=== PATIENT | female | born 1995 | race Caucasian/White ===

== ENCOUNTER → 2021-05-01 11:48 | Outpatient (BNVA) | payer OTHER, SELFPAY | PROVIDERS: PCP Internal Medicine; Visit Provider Obstetrics & Gynecology ==

== ENCOUNTER 2021-07-20 12:05 | Outpatient (REF) | payer OTHER, SELFPAY ==
[2021-07-21 02:47] LABS: CT PCR NOT DETECTED (Not Detect.); NG PCR NOT DETECTED (Not Detect.)
[2021-07-23 14:33] LABS: BV Int Neg Control Negative (Negative); BV Int Pos Control Positive (Positive)
== END 2021-07-20 12:06 | disposition home or self-care (01) ==
LOC: HO.LAB 12:05
PROVIDERS: PCP Internal Medicine; Visit Provider Obstetrics & Gynecology
DX: N76.0 Acute vaginitis (principal); Z11.3 Encounter for screening for infections with a predominantly sexual mode of transmission
CPT/HCPCS: 87480; 87491; 87510; 87591; 87660; 99212

== ENCOUNTER 2021-07-28 13:49 | Outpatient (REF) | payer OTHER, SELFPAY ==
[2021-07-28 15:01] LABS: Syphilis Screen Nonreactive (Nonreactive)
[2021-07-31 04:27] LABS: HIV AB/AG Nonreactive (Nonreactive); HIV Num 1 0.09 S/CO (0.00-0.99); ~HepC Num1 0.06 S/CO (0.00-0.79); ~Hepatitis C Antibody Nonreactive (Nonreactive)
[2021-07-31 04:37] LABS: HBsAGNum1 0.35 S/CO (0.00-0.99); Hepatitis B Surface Antigen Negative (Negative)
== END 2021-07-28 13:50 | disposition home or self-care (01) ==
LOC: HO.LAB 13:49
PROVIDERS: Visit Provider Obstetrics & Gynecology
DX: Z11.3 Encounter for screening for infections with a predominantly sexual mode of transmission (principal)
CPT/HCPCS: 36415; 86780; 86803; 87340; 87389

== ENCOUNTER 2021-10-19 13:52 | Outpatient (REF) | payer OTHER, SELFPAY ==
[2021-10-20 08:24] LABS: HIV AB/AG Nonreactive (Nonreactive); HIV Num 1 0.04 S/CO (0.00-0.99)
[2021-10-20 08:51] LABS: BV Int Neg Control Negative (Negative); BV Int Pos Control Positive (Positive)
[2021-10-20 11:07] LABS: CT PCR NOT DETECTED (Not Detect.); NG PCR NOT DETECTED (Not Detect.)
== END 2021-10-19 13:53 | disposition home or self-care (01) ==
LOC: HO.LAB 13:52
PROVIDERS: Visit Provider Obstetrics & Gynecology
DX: Z01.419 Encounter for gynecological examination (general) (routine) without abnormal findings (principal); N76.0 Acute vaginitis; B96.89 Other specified bacterial agents as the cause of diseases classified elsewhere
CPT/HCPCS: 36415; 87389; 87480; 87491; 87510; 87591; 87660; 99212

== ENCOUNTER 2021-12-13 10:00 | Outpatient (REF) | payer OTHER, SELFPAY ==
[2021-12-13 10:20] LABS: MANUAL DIFF FLAG NO
[2021-12-13 10:31] LABS: Basophils Percent Auto 0.4 % (0-2); Eosinophils Absolute Auto 0.2 X10*3/uL (0.0-0.4); Hematocrit 37.5 % (37.0-47.0); Hemoglobin 12.5 g/dl (12.0-16.0); Imm Gran Abs Auto 0.03 X10*3/uL (0.00-0.03); Imm Gran Pct Auto 0.4 % (0.0-0.4); Lymphocytes Absolute Auto 2.6 X10*3/uL (1.2-4.9); Lymphocytes Percent Auto 37.1 % (20-40); Mean Corpuscular HGB Conc 33.3 g/dl (31.0-35.0); Mean Corpuscular Hemoglobin 29.6 pg (27.0-33.0); Mean Corpuscular Volume 88.7 fL (80.0-98.0); Mean Platelet Volume 10.3 fL (9.4-12.3); Monocytes Absolute Auto 0.6 X10*3/uL (0.1-1.2); Monocytes Percent Auto 8.9 % (2-11); Neutrophils Absolute Auto 3.5 x10*3/uL (2.0-8.3); Neutrophils Percent Auto 50.2 % (45-73); Platelet Count 284 X10*3/uL (160-400); Red Blood Count 4.23 X10*6/uL (4.20-5.50); Red Cell Distribution Width 12.8 % (11.0-16.0)
[2021-12-13 11:38] LABS: Syphilis Screen Nonreactive (Nonreactive)
[2021-12-13 11:41] LABS: TSH reflex Free T4 1.01 uIU/mL (0.32-4.0); ~HepC Num1 0.07 S/CO (0.00-0.79); ~Hepatitis C Antibody Nonreactive (Nonreactive)
[2021-12-13 11:44] LABS: Alanine Aminotransferase 22 U/L (0-31); Albumin Level 4.2 g/dL (3.5-5.0); Alkaline Phosphatase 62 U/L (39-117); Anion Gap 10 (12-20); Aspartate Amino Transferase 19 U/L (5-31); Bilirubin Total 0.5 mg/dL (0.0-1.0); Blood Urea Nitrogen 15 mg/dL (9-16); Calcium 9.2 mg/dL (8.4-10.2); Carbon Dioxide 28 mmol/L (22-29); Chloride 106 mmol/L (96-108); Cholesterol 174 mg/dL; Estimated Glomerular Filt Rate > 60; Glucose Fasting 89 mg/dL (60-99); HDL Cholesterol 47 mg/dL; LDL Cholesterol Calculated 112 mg/dl; Potassium 4.4 mmol/L (3.3-5.1); Sodium 140 mmol/L (135-145); Triglycerides 77 mg/dL
[2021-12-13 12:26] LABS: Hepatitis B Surface Antigen Negative (Negative)
== END 2021-12-13 10:01 | disposition home or self-care (01) ==
LOC: HO.LAB 10:00
PROVIDERS: Obstetrics & Gynecology; PCP Nurse Practitioner Family; Visit Provider Nurse Practitioner Family
DX: Z13.29 Encounter for screening for other suspected endocrine disorder (principal); Z11.3 Encounter for screening for infections with a predominantly sexual mode of transmission; B96.89 Other specified bacterial agents as the cause of diseases classified elsewhere; N76.0 Acute vaginitis; Z76.89 Persons encountering health services in other specified circumstances
CPT/HCPCS: 36415; 80053; 80061; 84443; 85025; 86780; 86803; 87340

== ENCOUNTER 2022-04-05 07:49 | Outpatient (REF) | payer OTHER, SELFPAY ==
--- NOTE | 2022-04-05 07:53 | EMG_ITS ---
left median and ulnar motor and sensory studies were performed, left radial sensory study was performed, and paraspinal muscles were tested with a needle. IMPRESSION: Mild left ulnar nerve slowing across elbow. Median study was within normal range and otherwise no significant abnormality was noted. MD KUSUM Vaca/DYLONL / [id number]
== END 2022-04-05 07:50 | disposition home or self-care (01) ==
LOC: HO.NEURO 07:49
PROVIDERS: Visit Provider Nurse Practitioner Family
DX: R20.0 Anesthesia of skin (principal)
CPT/HCPCS: 95886; 95909

== ENCOUNTER 2022-06-25 15:06 | Outpatient (REF) | payer OTHER, SELFPAY ==
[2022-06-26 12:37] LABS: Influenza A PCR NEGATIVE (Negative); Influenza B PCR NEGATIVE (Negative); Resp Syncy Virus RNA Qual PCR NEGATIVE (Negative); SARS COV2 PCR INHOUSE POSITIVE (Negative)
== END 2022-06-25 15:07 | disposition home or self-care (01) ==
LOC: HO.LNP 15:06
PROVIDERS: Visit Provider Hospitalist
DX: Z20.822 Contact with and (suspected) exposure to COVID-19 (principal); B34.9 Viral infection, unspecified
CPT/HCPCS: 0241U

== ENCOUNTER 2022-06-25 16:24 | Outpatient (REF) | payer OTHER, SELFPAY | END 2022-06-25 16:25 | disposition home or self-care (01) | LOC: HO.LAB 16:24 | PROVIDERS: Visit Provider Hospitalist | DX: Z13.89 Encounter for screening for other disorder (principal) ==

== ENCOUNTER → 2022-11-16 09:32 | Outpatient (BNVA) | payer OTHER, SELFPAY | PROVIDERS: PCP Nurse Practitioner Family; Visit Provider Internal Medicine | DX: S00.83XA Contusion of other part of head, initial encounter (principal); W50.0XXA Accidental hit or strike by another person, initial encounter; H53.8 Other visual disturbances | CPT/HCPCS: 99202 ==

== ENCOUNTER → 2022-11-19 11:16 | Outpatient (BNVA) | payer OTHER, SELFPAY | PROVIDERS: PCP Nurse Practitioner Family; Visit Provider Internal Medicine | DX: H54.62 Unqualified visual loss, left eye, normal vision right eye (principal) | CPT/HCPCS: 99213 ==

== ENCOUNTER 2023-05-22 09:59 | Outpatient (AMB) | payer OTHER, SELFPAY ==
[2023-05-22 10:04] VITALS: BP 114/80; BMI 34.6
--- NOTE | 2023-05-22 10:04 | A.OFFVIS_ITS ---
Intake Vital Signs 05/22/23 10:04 Height 5 ft 1 in Weight 183 lb BMI 34.6 BP 114/80 Intake Visit Reasons: STD check Intake Note: has been having nausea cramping and has only been spotting since march, she states she felt like something was coming out she thinks she might have a prolapse, Also would like std checking. Animal Care Supervisor Required: No Information Interpreted: non-clinical & clinical Command And Control Systems Integrator: Command And Control Systems Integrator Present (Aidyn) Allergies acetaminophen [From PERCOCET] Allergy (Intermediate, Verified 05/22/23 10:08) SHORTNESS OF BREATH oxycodone [From PERCOCET] Allergy (Intermediate, Verified 05/22/23 10:08) SHORTNESS OF BREATH ondansetron [From ZOFRAN ( HYDROCHLORIDE)] Allergy (Unknown, Verified 05/22/23 10:08) UNKNOWN oxycodone Allergy (Unknown, Uncoded 05/22/23 10:08) hives percocet Allergy (Unknown, Uncoded 05/22/23 10:08) shortness of breath tylenol Allergy (Unknown, Uncoded 05/22/23 10:08) hives zofran Allergy (Unknown, Uncoded 05/22/23 10:08) hives Is last menstrual period known: Yes Last menstrual period: 04/02/23 Post menopausal: No HPI STD check HPI Details Patient is here for visit for an STD check. She said she had an annual exam scheduled in March but it got rescheduled and she did not want a wait till June when it has been rescheduled for an STD check she is not particularly worried she just likes to get them done regularly she is not having any abnormal discharge from what she tells me and she has never had an abnormal Pap but she did not want await for the STD check part of. She also says that a little while ago she was peeing and she felt something that a was coming out of her and she took a picture of it and looked it up and it said that she could be having a prolapse. She denies straining for having bowel movements or voiding and says she did not push for either of her deliveries very much at all her 1st baby was delivered vaginally and her 2nd baby had trisomy 13 and a heart defect and was delivered at 36 weeks at [facility] and she says they were trying to keep her for a while and then they induced her and then they did is . So she did not push for that delivery either. She denies any other urinary problems or any other issues with constipation or straining. She also had not had a period since April 09 or soap though she does not exactly keep track of the dates and she wanted a test and she is not trying to prevent and she is not trying to get if it happens it happens and she would be okay with it her 1st child was born in 2017 the child with trisomy 13 lived for 9 days. [facility] Surgical History Hx of section Family History Mother Asthma Father Diabetes Social History Housing: House Alcohol intake: never Patient Tobacco Use Status: Never used Tobacco e-Cigarette/Vaping Use: Never Used Second Hand Smoke Exposure: No service: No Current occupational status: unemployed Cognitive needs: No Hearing needs: No Vision needs: No Female Reproductive History Menstrual Age of Menarche: 10 Duration of menses: 6-7 days Date of last menstrual period: 04/02/23 control method: none Total pregnancies: 2 Full term: 1 Number of Living Children: 1 Date of last pap smear: 11/11/19 (negative) History of abnormal pap smear: No Physical Exam Vital Signs: Last Vital Signs BP 114/80 05/22/23 10:04 BMI result Body Mass Index 34.6 Const General: healthy appearing, comfortable, no acute distress, well developed and alert Nutritional Appearance: average body habitus Orientation/consciousness: patient oriented x3 Limitations: no limitations HEENT Head: Yes normocephalic Neck Neck: Yes normal visual inspection Chest Chest palpation & inspection: normal inspection of the chest Breast/axilla inspection: normal inspection of the breasts and normal inspection of the axillae Breast/axilla palpation: normal palpation of the breasts and normal palpation of the axillae Resp Effort & Inspection: normal respiratory effort GI Inspection: Yes normal to inspection, No Abdominal wall edema and No distended Palpation (GI): Soft to palpation and nontender Other: External vaginal exam within normal limits cervix parous slightly friable with Pap but within normal limits with ectropion. Cervix is anterior mid uterus is also and midposition. Nontender not enlarged adnexa not enlarged good tone elicited with Kegel with increasing strength and attempts to pull upwards as well. Cervix is approximately 4 cm from introitus. Discussed that this might represent for her a mild degree of prolapse and discussed in great detail ways to improve her situation and also the strains and stresses that happen with time constipation and straining. I am recommending to her that I refer her to pelvic floor therapy for some additional teaching about strengthening of her pelvic floor to prevent a worsening especially since she is anticipating she might welcome future pregnancies. General: Yes bladder normal to palpation External Female Exam: normal external appearance and normal appearance of the urethra Speculum Exam - Vagina: normal appearance of the vagina, normal palpation and normal vaginal discharge Speculum Exam - Cervix: normal appearance of the cervix, normal palpation and nontender Bimanual exam- vagina & uterus: normal bimanual exam, normal palpation, uterine size normal, bladder normal to palpation, consistency normal, normal palpation, uterine mobility normal, uterine shape normal, No Cervical tenderness present, non-tender and no cervical motion tenderness Bimanual Exam- Adnexa, other: normal adnexae, no masses, normal and No adnexal tenderness Neuro General: patient oriented x3 Results AMB Test Urine AMB Test Urine Negative Last Edit by GUZMAN Reddy on 10:21 Results Reviewed Results Reviewed: Laboratory Last Values [facility] Clinic Negative 05/22/23 10:20 Assessment & Plan Assessment & Plan (1) Screening for STD (sexually transmitted disease): Code(s): Z11.3 - Encounter for screening for infections with a predominantly sexual mode of transmission (2) Well woman exam: Code(s): Z01.419 - Encounter for gynecological examination (general) (routine) without abnormal findings (3) Late menses: Code(s): N92.6 - Irregular menstruation, unspecified (4) Pelvic floor weakness: Code(s): N81.89 - Other female genital prolapse Plan External vaginal exam within normal limits cervix parous slightly friable with Pap but within normal limits with ectropion. Cervix is anterior mid uterus is also and midposition. Nontender not enlarged adnexa not enlarged good tone elicited with Kegel with increasing strength and attempts to pull upwards as well. Cervix is approximately 4 cm from introitus. Discussed that this might represent for her a mild degree of prolapse and discussed in great detail ways to improve her situation and also the strains and stresses that happen with time constipation and straining. I am recommending to her that I refer her to pelvic floor therapy for some additional teaching about strengthening of her pelvic floor to prevent a worsening especially since she is anticipating she might welcome future pregnancies. Will place referral for physical therapy and I gave her a brochure as well. As far as the late menses go she does not think she has gained weight recently in fact she thinks she has lost some. Her thyroid evaluation a year and half ago was within normal limits but I will repeat the TSH and discussed repeating tests if her menses does not come and not to let it go beyond 3 months. She intends to repeat tests at home as well but I will do you serum 1 as well which I anticipate will also be negative but since I am ordering STI testing. That would be within normal limits. Pap smear was also done. Orders: Orders HCG Quantitative Today N92.6 - Irregular menstruation, unspecified, Z01.419 - Encounter for gynecological examination (general) (routine) without abnormal findings, Z11.3 - Encounter for screening for infections with a predominantly sexual mode of transmission Thyroid Stimulating Hormone Today N92.6 - Irregular menstruation, unspecified, Z01.419 - Encounter for gynecological examination (general) (routine) without abnormal findings, Z11.3 - Encounter for screening for infections with a predominantly sexual mode of transmission Hepatitis B Surface Antigen Today N92.6 - Irregular menstruation, unspecified, Z01.419 - Encounter for gynecological examination (general) (routine) without abnormal findings, Z11.3 - Encounter for screening for infections with a predominantly sexual mode of transmission Hepatitis C Antibody Today N92.6 - Irregular menstruation, unspecified, Z01.419 - Encounter for gynecological examination (general) (routine) without abnormal findings, Z11.3 - Encounter for screening for infections with a predominantly sexual mode of transmission HIV Ab/Ag Today N92.6 - Irregular menstruation, unspecified, Z01.419 - Encounter for gynecological examination (general) (routine) without abnormal findings, Z11.3 - Encounter for screening for infections with a predominantly sexual mode of transmission Syphilis Screen Today N92.6 - Irregular menstruation, unspecified, Z01.419 - Encounter for gynecological examination (general) (routine) without abnormal findings, Z11.3 - Encounter for screening for infections with a predominantly sexual mode of transmission Bacterial Vaginosis Panel Today Z11.3 - Encounter for screening for infections with a predominantly sexual mode of transmission CT NG by PCR Today Z11.3 - Encounter for screening for infections with a predominantly sexual mode of transmission AMB HCG Urine Test Today Z32.02 - Encounter for test, result negative Pap Smear Today Z01.419 - Encounter for gynecological examination (general) (routine) without abnormal findings, Z11.3 - Encounter for screening for infections with a predominantly sexual mode of transmission Referrals Pelvic Private Duty Aide Referral M62.89 - Other specified disorders of muscle Coding Level of Care Code Est Pt Prev Care 18-39y(40133) Diagnoses Screening for STD (sexually transmitted disease) Z11.3 Well woman exam Z01.419 Late menses N92.6 Pelvic floor weakness N81.89
== END 2023-05-22 10:57 | disposition home or self-care (01) ==
LOC: HO.HWS 09:59
PROVIDERS: PCP Nurse Practitioner Family; Visit Provider Advanced Practice Midwife
DX: Z01.419 Encounter for gynecological examination (general) (routine) without abnormal findings (principal); Z11.3 Encounter for screening for infections with a predominantly sexual mode of transmission; N92.6 Irregular menstruation, unspecified; N81.89 Other female genital prolapse; Z32.02 Encounter for pregnancy test, result negative
CPT/HCPCS: 99395

== ENCOUNTER 2023-05-22 09:59 | Outpatient (REF) | payer OTHER, SELFPAY ==
[2023-05-23 06:44] LABS: CT PCR DETECTED (Not Detect.); NG PCR NOT DETECTED (Not Detect.)
[2023-05-23 15:19] LABS: BV Int Neg Control Negative (Negative); BV Int Pos Control Positive (Positive)
== END 2023-05-22 10:00 | disposition home or self-care (01) ==
LOC: HO.LNP 09:59
PROVIDERS: PCP Nurse Practitioner Family; Visit Provider Advanced Practice Midwife
DX: Z01.419 Encounter for gynecological examination (general) (routine) without abnormal findings (principal); Z11.3 Encounter for screening for infections with a predominantly sexual mode of transmission; N81.89 Other female genital prolapse; N92.6 Irregular menstruation, unspecified
CPT/HCPCS: 0353U; 81025; 87480; 87510; 87660; 88142

== ENCOUNTER 2023-05-28 13:17 | Outpatient (REF) | payer OTHER, SELFPAY ==
[2023-05-28 15:13] LABS: HCG Quantitative < 2 mIU/mL; Thyroid Stimulating Hormone 0.36 uIU/mL (0.32-4.0)
[2023-05-29 03:38] LABS: Syphilis Screen Nonreactive (Nonreactive)
[2023-05-29 04:07] LABS: HBsAGNum1 0.45 S/CO (0.00-0.99); HIV AB/AG Nonreactive (Nonreactive); HIV Num 1 0.06 S/CO (0.00-0.99); Hepatitis B Surface Antigen Negative (Negative); ~HepC Num1 0.08 S/CO (0.00-0.79); ~Hepatitis C Antibody Nonreactive (Nonreactive)
== END 2023-05-28 13:18 | disposition home or self-care (01) ==
LOC: HO.LAB 13:17
PROVIDERS: PCP Nurse Practitioner Family; Visit Provider Advanced Practice Midwife
DX: Z11.4 Encounter for screening for human immunodeficiency virus [HIV] (principal); Z11.3 Encounter for screening for infections with a predominantly sexual mode of transmission; N92.6 Irregular menstruation, unspecified
CPT/HCPCS: 36415; 84443; 84702; 86780; 86803; 87340; 87389

== ENCOUNTER 2023-06-18 13:08 | Outpatient (REF) | payer OTHER, SELFPAY ==
[2023-06-18 17:51] LABS: CT PCR NOT DETECTED (Not Detect.); NG PCR NOT DETECTED (Not Detect.)
[2023-06-19 08:49] LABS: BV Int Neg Control Negative (Negative); BV Int Pos Control Positive (Positive)
== END 2023-06-18 13:09 | disposition home or self-care (01) ==
LOC: HO.LAB 13:08
PROVIDERS: PCP Nurse Practitioner Family; Visit Provider Advanced Practice Midwife
DX: Z11.3 Encounter for screening for infections with a predominantly sexual mode of transmission (principal); A74.9 Chlamydial infection, unspecified
CPT/HCPCS: 0353U; 87480; 87510; 87660; 99212

== ENCOUNTER 2023-06-18 13:08 | Outpatient (AMB) | payer OTHER, SELFPAY ==
--- NOTE | 2023-06-18 13:16 | MHC.OFFVIS ---
Intake Vital Signs 06/18/23 13:17 Height 5 ft 1 in Weight 189 lb BMI 35.7 BP 120/80 Intake Visit Reasons: BRET Intake Note: patient unsure if partner got treatment Manager Transmission: Manager Transmission Present (Ediht) Allergies acetaminophen [From PERCOCET] Allergy (Intermediate, Verified 06/18/23 13:16) SHORTNESS OF BREATH oxycodone [From PERCOCET] Allergy (Intermediate, Verified 06/18/23 13:16) SHORTNESS OF BREATH ondansetron [From ZOFRAN ( HYDROCHLORIDE)] Allergy (Unknown, Verified 06/18/23 13:16) UNKNOWN oxycodone Allergy (Unknown, Uncoded 05/22/23 10:08) hives percocet Allergy (Unknown, Uncoded 05/22/23 10:08) shortness of breath tylenol Allergy (Unknown, Uncoded 05/22/23 10:08) hives zofran Allergy (Unknown, Uncoded 05/22/23 10:08) hives Medication List - Last Reconciled 06/18/23 by Irais Isaac CNM No Known Home Meds Is last menstrual period known: Yes Last menstrual period: 06/11/23 HPI BRET HPI Details Patient is here for test of cure for chlamydia she just got back more actively ?talking? with her partner about a week ago and did have sex last night she has been noticing that she just feels funny down there with maybe a little burning and so she is worried that maybe he did not get treated as he said he had. She is not contraceptive thing could she was open to . She was unable to look up her HIV etc. lab results on the portal. [facility] Surgical History Hx of section Family History Mother Asthma Father Diabetes Social History Housing: House Alcohol intake: never Patient Tobacco Use Status: Never used Tobacco e-Cigarette/Vaping Use: Never Used Second Hand Smoke Exposure: No service: No Current occupational status: unemployed Cognitive needs: No Hearing needs: No Vision needs: No Female Reproductive History Menstrual Age of Menarche: 10 Duration of menses: 6-7 days Date of last menstrual period: 06/11/23 control method: none Date of last pap smear: 05/22/23 (neg) History of abnormal pap smear: No History of STI: Yes (chlamydia,) Physical Exam Vital Signs: Last Vital Signs BP 120/80 06/18/23 13:17 BMI result Body Mass Index 35.7 Other: Clear slippery mucus from cervix. External Female Exam: normal external appearance and normal appearance of the urethra Speculum Exam - Vagina: normal appearance of the vagina and normal vaginal discharge Speculum Exam - Cervix: normal appearance of the cervix and Cervical os closed Results Reviewed Results Reviewed: Name: Blanche Avilez Age/Sex: 27/F : 1995 Unit#: [id number] Attend Dr: Irais Isaac CNM Re05/22/23 Status: DEP REF Location: [facility] Disch: SPEC : [id number] ALEJANDRA: 05/22/23 STATUS: COMP REQ : [id number] RECD: 05/22/23 [facility] DR: Irais Isaac CNM COMP: 05/23/23 ENTERED: 05/22/23 [facility] DR: Lindy Simon ORDERED: CT NG by PCR QUERIES: CT NG Source: Vaginal Test Result Flag Reference Site CT PCR DETECTED A Not Detect. Detected results may be observed after successful antibiotic treatment due to target nucleic acids from residual non-viable chlamydia. As with many diagnostic tests, results from the Xpert CT/NG assay should be interpreted in conjunction with other laboratory and clinical data available to the clinician. Xpert CT/NG performance has not been evaluated in patients less than 14 years of age. The assay should not be used for the evaluation of suspected sexual abuse or for other medico-legal indications. Additional testing is recommended in any circumstance when false positive or false negative results could lead to adverse medical, social or psychological consequences. These results must be reported by the ordering clinician or clinical facility to the [facility] as required by state law. NG PCR NOT DETECTED Not Detect. A not detected test result does not exclude the possibility of infection because test results can be affected by improper specimen collection, concurrent antibiotic therapy, or the number of organisms in the specimen which may be below the sensitivity of the test. As with many diagnostic tests, results from the Xpert CT/NG assay should be interpreted in conjunction with other laboratory and clinical data available to the clinician. Xpert CT/NG performance has not been evaluated in patients less than 14 years of age. The assay should not be used for the evaluation of suspected sexual abuse or for other medico-legal indications. Additional testing is recommended in any circumstance when false positive or false negative results could lead to adverse medical, social or psychological consequences. Name: Blanche Avilez Age/Sex: 27/F : 1995 Unit#: [id number] Attend Dr: Irais Isaac CNM Re05/28/23 Status: DEP REF Location: .LAB Disch: SPEC : [id number] ALEJANDRA: 05/28/23 STATUS: COMP REQ : [id number] RECD: 05/28/23 [facility] DR: Irais Isaac CNM COMP: 05/29/23-2 ENTERED: 05/28/23-1321 [facility] [address]: Lindy Simon HOME VISIT FIELD CARE MANAGER ORDERED: Anti-HCV, HIV Ab/Ag, HBsAG Test Result Flag Reference Site Anti-HCV Nonreactive Nonreactive Antibodies to HCV not detected; does not exclude early acute HCV infection. HIV AB/AG Nonreactive Nonreactive HIV-1 p24 Ag and/or HIV-1/HIV-2 Ab not detected. A test result that is nonreactive does not exclude the possibility of exposure to or infection with HIV-1 and/or HIV-2. Nonreactive results in this assay for individuals with prior exposure to HIV-1 and/or HIV-2 may be due to antigen and antibody levels that are below the limit of detection of this assay. The [facility] Technician HIV Ag/Ab Combo assay result and supplemental assay results should be interpreted in conjunction with the patient's clinical presentation, history and other laboratory results. If the results are inconsistent with clinical evidence, additional testing is suggested to confirm the result. HBsAG Negative Negative Also RPR negative Assessment & Plan Assessment & Plan (1) Cervical cancer screening: Comment: 05/22/2023 Pap is negative. Code(s): Z12.4 - Encounter for screening for malignant neoplasm of cervix (2) Chlamydia infection: Comment: And her partner need Rx, safe sex, test of cure and treatment consistent with possibility of .... Code(s): A74.9 - Chlamydial infection, unspecified Plan Discussed the challenge of partner fidelity and challenges of knowing of whether not a partner has honestly communicated with her about treatment. We will do the test of cure and await results she can call in for the results on morning. Also I reviewed her past HIV hep B hep C and syphilis testing which was all negative. She is anxious to get the results to decide how she proceeds forward she did have unprotected sex with him last night. Coding Level of Care Code Est Pt Level 3 (85374) Diagnoses Cervical cancer screening Z12.4 Chlamydia infection A74.9
[2023-06-18 13:17] VITALS: BP 120/80; BMI 35.7
== END 2023-06-18 14:05 | disposition home or self-care (01) ==
PROVIDERS: PCP Nurse Practitioner Family; Visit Provider Advanced Practice Midwife
DX: Z12.4 Encounter for screening for malignant neoplasm of cervix (principal); A74.9 Chlamydial infection, unspecified
CPT/HCPCS: 99213

== ENCOUNTER 2023-06-18 14:03 | Outpatient (REF) | payer OTHER, SELFPAY | END 2023-06-18 14:04 | disposition home or self-care (01) | LOC: HO.LNP 14:03 | PROVIDERS: Visit Provider Advanced Practice Midwife | DX: Z13.89 Encounter for screening for other disorder (principal) ==